=== PATIENT | female | born 1965 | race Caucasian/White ===

== ENCOUNTER 2016-11-09 07:22 | Emergency (ER) | payer OTHER ==
[~2016-11-09] VITALS: Ht 165.1 cm; Wt 54.4 kg
[~2016-11-09 07:22] MED LIST: ALBUTEROL0.09 MG/A2 INH; AMOXICILLIN500 MG PO; CLARITIN10 MG PO; DAYPRO600 M1 PO; EFFEXOR25 MG PO; FLEXERIL10 MG PO; HYDROCODONE BIT1 T11 PO; IBU800 MG PO; LEXAPRO5 MG PO; LOMOTIL 0.025 M1 TA1 PO; MOTRIN800 MG PO; NEURONTIN300 MG PO; PEN-VEE K500 MG PO; PENICILLIN VK500 MG PO; PHENTERMINE15 MG PO; PREDNICOT20 MG PO; PREDNISONE10 MG PO; REMERON15 MG PO; ROBAXIN750 MG PO; TESSALON PERLE100 M1 PO; TRAMADOL HCL50 MG PO; TRIMOX500 MG PO; ULTRAM50 MG PO; VICODIN 5/500 505 MG PO; ZITHROMAX Z PA250 MG PO; ZOFRAN ODT4 MG SL
[2016-11-09 07:46] LABS: BASO # 0.1 10*3/uL (0.0-0.1); BASO % 0.5 % (0.0-1.0); EOS % 0.3 % (1.0-4.0); HEMATOCRIT 36.1 % (37.0-47.0); LYMPH # 3.2 10*3/uL (1.3-4.4); LYMPH % 27.3 % (27.0-41.0); MEAN CORPUSCULAR HGB 30.9 pg (27.0-31.0); MEAN CORPUSCULAR HGB CONC 33.2 g/dl (33.0-37.0); MEAN PLATELET VOLUME 9.4 fl (9.6-12.3); MONO # 1.2 10*3/uL (0.1-1.0); MONO % 10.2 % (3.0-9.0); NEUT # 7.2 10*3/uL (2.3-7.9); NEUT % 61.4 % (47.0-73.0); PLATELET COUNT AUTOMATED 229 10*3/uL (130-400); RED BLOOD COUNT 3.88 10*6/uL (4.10-5.10); RED CELL DISTRI WIDTH 13.5 % (0-14.5); WHITE BLOOD COUNT 11.8 10*3/uL (4.8-10.8)
[2016-11-09 07:56] LABS: PROTHROMBIN TIME 10.3 SECONDS (9.0-12.4)
[2016-11-09 08:05] LABS: ALBUMIN 3.7 gm/dl (3.1-4.5); ALKALINE PHOSPHATASE 67 U/L (45-117); BILIRUBIN, TOTAL 0.3 mg/dl (0.2-1.0); BUN 10 mg/dl (7-24); C-REACTIVE PROTEIN 0.69 MG/DL (0-0.3); CARBON DIOXIDE 30 mmol/L (21-32); CHLORIDE 100 mmol/L (98-107); CKMB 1.2 ng/ml (0.5-3.6); CPK 79 U/L (26-192); EST GLOM FILT AFRICAN AMERICAN > 60 ml/min; GLUCOSE 135 mg/dL (65-99); POTASSIUM 3.7 mmol/L (3.5-5.1); SGOT/AST 23 IU/L (3-35); SGPT/ALT 39 U/L (12-78); SODIUM 140 mmol/L (136-145); TOTAL PROTEIN 7.5 gm/dL (6.4-8.2)
[2016-11-09 08:06] LABS: TROPONIN I < 0.015 ng/ml (<0.045)
[2016-11-09 09:35] LABS: BILIRUBIN NEGATIVE (NEGATIVE); BLOOD TRACE-INTACT (NEGATIVE); CLARITY SL CLOUDY (CLEAR); COLOR YELLOW (YELLOW); GLUCOSE NEGATIVE (NEGATIVE); KETONE NEGATIVE (NEGATIVE); LEUKO ESTERASE NEGATIVE (NEGATIVE); NITRITE NEGATIVE (NEGATIVE); PROTEIN NEGATIVE (NEGATIVE); SPECIFIC GRAVITY 1.015 (1.005-1.030)
[2016-11-09 09:42] LABS: LA>2 REFLEX 2 HR DRAW NOW
[2016-11-09 09:42] LABS: BACTERIA 1+
[2016-11-09 09:43] LABS: URINE REFLEX COMMENT YES (NO)
[2016-11-09 09:45] LABS: URINE AMPHETAMINES < 1000 (1000ng/ml); URINE BARBITURATES < 200 (200ng/ml); URINE COCAINE < 300 (300ng/ml)
== END 2016-11-09 12:11 | disposition home or self-care (01) ==
LOC: ED 07:22
PROVIDERS: Emergency Medicine
DX: T40.601A Poisoning by unspecified narcotics, accidental (unintentional), initial encounter (principal); Z91.018 Allergy to other foods; Z86.19 Personal history of other infectious and parasitic diseases; Y92.9 Unspecified place or not applicable

== ENCOUNTER 2022-08-06 16:24 | Inpatient (IN) | payer OTHER ==
[~2022-08-06] VITALS: Ht 157.5 cm; Wt 39.9 kg
[~2022-08-06 16:24] MED LIST changes: +FUROSEMIDE40 MG PO; +Ipratropium Brom3 ML NEB; +LASIX40 MG PO; +LEVOFLOXACIN500 MG PO
[2022-08-06 16:34] VITALS: BP 151/93
[2022-08-06 17:16] LABS: HEMATOCRIT 45.6 % (37.0-47.0); MEAN CELL VOLUME 82.9 fl (81.0-99.0); MEAN CORPUSCULAR HGB 25.8 pg (27.0-31.0); MEAN CORPUSCULAR HGB CONC 31.1 g/dl (33.0-37.0); PLATELET COUNT AUTOMATED 378 10*3/uL (130-400); RED CELL DISTRI WIDTH 19.9 % (0-14.5); WHITE BLOOD COUNT 16.2 10*3/uL (4.8-10.8)
[2022-08-06 17:18] LABS: MANUAL DIFF REFLEX YES
[2022-08-06 17:33] LABS: ALKALINE PHOSPHATASE 84 U/L (46-116); BUN 6 mg/dl (9-23); CHLORIDE 95 mmol/L (98-107); CREATININE 0.59 mg/dL (0.55-1.02); POTASSIUM 3.2 mmol/L (3.4-5.1); SGPT/ALT 11 U/L (10-49); SODIUM 136 mmol/L (136-145); TOTAL PROTEIN 7.9 gm/dL (6.0-8.0)
[2022-08-06 17:37] LABS: BILIRUBIN Negative (Negative); BLOOD Negative (Negative); CLARITY Cloudy (Clear); COLOR Dark Yellow (Yellow); GLUCOSE Negative (Negative); KETONE Trace (Negative); LEUKO ESTERASE Trace (Negative); NITRITE Negative (Negative); SPECIFIC GRAVITY >= 1.030 (1.001-1.030)
[2022-08-06 17:47] LABS: PLATELET SUFFICIENCY NORMAL (NORMAL); POLYCHROMASIA SLIGHT; TOTAL CELLS COUNTED 100 #CELLS
[2022-08-06 17:48] LABS: STOMATOCYTE FEW; TARGET CELLS FEW
[2022-08-06 18:38] LABS: BACTERIA 2+; EPITHELIAL CELLS TNTC; RBC 0-2 rbc/hpf (0-2)
[2022-08-06] MEDS ORDERED: FUROSEMIDE20 M1 PO (20:46)
[2022-08-06] MEDS ORDERED: POTASSIUM CHLO20 ME4 PO (20:47)
[2022-08-07 00:40] VITALS: BP 148/103
[2022-08-07 08:00] VITALS: BP 140/68
[2022-08-07 08:24] LABS: BASO % 0.2 % (0.0-1.0); HEMATOCRIT 43.3 % (37.0-47.0); LYMPH # 1.1 10*3/uL (1.3-4.4); LYMPH % 7.6 % (27.0-41.0); MEAN CELL VOLUME 83.6 fl (81.0-99.0); MEAN CORPUSCULAR HGB 25.5 pg (27.0-31.0); MEAN CORPUSCULAR HGB CONC 30.5 g/dl (33.0-37.0); MEAN PLATELET VOLUME 8.7 fl (9.6-12.3); MONO # 0.4 10*3/uL (0.1-1.0); MONO % 2.5 % (3.0-9.0); NEUT # 12.6 10*3/uL (2.3-7.9); NEUT % 88.9 % (47.0-73.0); PLATELET COUNT AUTOMATED 383 10*3/uL (130-400); RED BLOOD COUNT 5.18 10*6/uL (4.10-5.10); RED CELL DISTRI WIDTH 19.7 % (0-14.5); WHITE BLOOD COUNT 14.2 10*3/uL (4.8-10.8)
[2022-08-07 08:39] LABS: ALKALINE PHOSPHATASE 81 U/L (46-116); BUN 8 mg/dl (9-23); CHLORIDE 99 mmol/L (98-107); CREATININE 0.52 mg/dL (0.55-1.02); SGPT/ALT 10 U/L (10-49); SODIUM 139 mmol/L (136-145); TOTAL PROTEIN 7.2 gm/dL (6.0-8.0)
[2022-08-07 08:59] LABS: POTASSIUM 4.9 mmol/L (3.4-5.1)
[2022-08-07 12:00] VITALS: BP 127/64
[2022-08-07] MEDS ORDERED: LEVOFLOXACIN750 M2 PO (12:04)
[2022-08-07] MEDS ORDERED: PREDNISONE10 MG PO (12:04)
== END 2022-08-07 14:40 | disposition home or self-care (01) | DRG 871 ==
LOC: ED 16:24 → EDHOLD 21:05 → 4E 23:20
PROVIDERS: Internal Medicine; Physician Assistant; ADMIT Family Medicine; ATTEND Family Medicine
DX: A41.9 Sepsis, unspecified organism (principal); J18.9 Pneumonia, unspecified organism; J96.01 Acute respiratory failure with hypoxia; E44.0 Moderate protein-calorie malnutrition; J44.1 Chronic obstructive pulmonary disease with (acute) exacerbation; Z68.1 Body mass index [BMI] 19.9 or less, adult; Z20.822 Contact with and (suspected) exposure to COVID-19; I50.9 Heart failure, unspecified; I11.0 Hypertensive heart disease with heart failure; R65.20 Severe sepsis without septic shock; R73.9 Hyperglycemia, unspecified; Z91.02 Food additives allergy status; Z82.49 Family history of ischemic heart disease and other diseases of the circulatory system; Z80.1 Family history of malignant neoplasm of trachea, bronchus and lung; Z86.19 Personal history of other infectious and parasitic diseases; Z87.891 Personal history of nicotine dependence

== ENCOUNTER 2022-09-20 12:20 | Inpatient (IN) | payer OTHER ==
[~2022-09-20] VITALS: Ht 157.5 cm; Wt 45.2 kg
[2022-09-20] VITALS (8 sets, daily range): BP systolic 118–153; BP diastolic 65–85
[~2022-09-20 12:20] MED LIST changes: +FUROSEMIDE20 M1 PO; +LEVOFLOXACIN750 M2 PO; +POTASSIUM CHLO20 ME4 PO
[2022-09-20 12:49] LABS: BILIRUBIN Negative (Negative); BLOOD Negative (Negative); CLARITY Clear (Clear); COLOR Yellow (Yellow); GLUCOSE Negative (Negative); KETONE Negative (Negative); LEUKO ESTERASE Negative (Negative); NITRITE Negative (Negative); PH 7.5 (4.5-8.0); SPECIFIC GRAVITY <= 1.005 (1.001-1.030); UROBILINOGEN 0.2 E.U./dl (0.0-1.0)
[2022-09-20 12:59] LABS: EPITHELIAL CELLS 0-2; RBC 0-2 rbc/hpf (0-2)
[2022-09-20 13:16] LABS: BASO # 0.1 10*3/uL (0.0-0.1); BASO % 1.1 % (0.0-1.0); EOS # 0.1 10*3/uL (0.0-0.4); EOS % 1.3 % (1.0-4.0); HEMATOCRIT 49.4 % (37.0-47.0); LYMPH # 2.5 10*3/uL (1.3-4.4); LYMPH % 39.5 % (27.0-41.0); MEAN CELL VOLUME 90.5 fl (81.0-99.0); MEAN CORPUSCULAR HGB 28.2 pg (27.0-31.0); MEAN CORPUSCULAR HGB CONC 31.2 g/dl (33.0-37.0); MEAN PLATELET VOLUME 9.2 fl (9.6-12.3); MONO # 0.7 10*3/uL (0.1-1.0); MONO % 10.8 % (3.0-9.0); NEUT % 47.1 % (47.0-73.0); PLATELET COUNT AUTOMATED 244 10*3/uL (130-400); RED BLOOD COUNT 5.46 10*6/uL (4.10-5.10); RED CELL DISTRI WIDTH 20.1 % (0-14.5); WHITE BLOOD COUNT 6.3 10*3/uL (4.8-10.8)
[2022-09-20 13:32] LABS: ALKALINE PHOSPHATASE 67 U/L (46-116); BUN 7 mg/dl (9-23); CHLORIDE 99 mmol/L (98-107); LIPASE 25 U/L (12-53); POTASSIUM 3.5 mmol/L (3.4-5.1); SGPT/ALT 145 U/L (10-49); TOTAL PROTEIN 7.7 gm/dL (6.0-8.0)
[2022-09-20 13:37] LABS: ACT PARTIAL THROMBO TIME 28.8 SECONDS (20.0-32.1); INTERNATIONAL NORM RATIO 1.1 (2.0-3.5)
[2022-09-21] VITALS: BP 117/57
[2022-09-21 07:24] LABS: BASO % 0.1 % (0.0-1.0); HEMATOCRIT 46.5 % (37.0-47.0); LYMPH # 1.4 10*3/uL (1.3-4.4); LYMPH % 20.6 % (27.0-41.0); MEAN CELL VOLUME 90.6 fl (81.0-99.0); MEAN CORPUSCULAR HGB 28.7 pg (27.0-31.0); MEAN CORPUSCULAR HGB CONC 31.6 g/dl (33.0-37.0); MONO # 0.6 10*3/uL (0.1-1.0); MONO % 8.3 % (3.0-9.0); NEUT # 4.8 10*3/uL (2.3-7.9); NEUT % 70.7 % (47.0-73.0); PLATELET COUNT AUTOMATED 258 10*3/uL (130-400); RED BLOOD COUNT 5.13 10*6/uL (4.10-5.10); RED CELL DISTRI WIDTH 20.1 % (0-14.5); WHITE BLOOD COUNT 6.7 10*3/uL (4.8-10.8)
[2022-09-21 07:43] LABS: ALKALINE PHOSPHATASE 67 U/L (46-116); CHLORIDE 102 mmol/L (98-107); POTASSIUM 4.1 mmol/L (3.4-5.1); SGPT/ALT 115 U/L (10-49); TOTAL PROTEIN 6.7 gm/dL (6.0-8.0)
[2022-09-21 07:46] LABS: BUN 17 mg/dl (9-23)
[2022-09-21 08:00] VITALS: BP 94/44
[2022-09-21 12:00] VITALS: BP 128/74
[2022-09-21] MEDS ORDERED: Ipratropium Brom3 ML NEB (14:38)
[2022-09-21] MEDS ORDERED: FUROSEMIDE20 M1 PO (14:38)
[2022-09-21] MEDS ORDERED: POTASSIUM CHLO20 ME4 PO (14:38)
[2022-09-21] MEDS ORDERED: CYCLOBENZAPRINE10 MG PO (14:53)
== END 2022-09-21 15:48 | disposition home or self-care (01) | DRG 189 ==
LOC: ED 12:20 → 5E 17:08 → EDHOLD 17:08 → 5E 18:15
PROVIDERS: Emergency Medicine; Internal Medicine; ADMIT Internal Medicine; ATTEND Internal Medicine
DX: J96.01 Acute respiratory failure with hypoxia (principal); I50.32 Chronic diastolic (congestive) heart failure; B18.2 Chronic viral hepatitis C; I11.0 Hypertensive heart disease with heart failure; M25.511 Pain in right shoulder; M62.838 Other muscle spasm; R74.01 Elevation of levels of liver transaminase levels; J43.1 Panlobular emphysema; R91.1 Solitary pulmonary nodule; Z87.891 Personal history of nicotine dependence; Z91.018 Allergy to other foods; Z82.49 Family history of ischemic heart disease and other diseases of the circulatory system; Z80.1 Family history of malignant neoplasm of trachea, bronchus and lung; Z83.3 Family history of diabetes mellitus; Z79.899 Other long term (current) drug therapy

== ENCOUNTER → 2022-10-18 | Outpatient (CLI) | payer OTHER ==
[~2022-10-18] MED LIST changes: +CYCLOBENZAPRINE10 MG PO
== END | disposition home or self-care (01) ==
LOC: RESCLI 09:40
PROVIDERS: ATTEND Internal Medicine
DX: R20.0 Anesthesia of skin (principal); J44.9 Chronic obstructive pulmonary disease, unspecified; B15.9 Hepatitis A without hepatic coma; B18.2 Chronic viral hepatitis C; I50.9 Heart failure, unspecified; R91.1 Solitary pulmonary nodule; Z91.018 Allergy to other foods; Z86.16 Personal history of COVID-19; Z98.890 Other specified postprocedural states; Z87.891 Personal history of nicotine dependence; F10.90 Alcohol use, unspecified, uncomplicated; Z79.899 Other long term (current) drug therapy

== ENCOUNTER 2023-11-28 16:42 | Emergency (ER) | payer OTHER ==
[~2023-11-28] VITALS: Ht 157.4 cm; Wt 40.8 kg
[~2023-11-28 16:42] MED LIST changes: +ADVAIR 250/501 EA INH; +DOXYCYCLINE HY100 M3 PO; +VENT7GM INH; +ZESTRIL10 MG PO
[2023-11-28] MEDS ORDERED: AMOX-CLAV 875-1 EACH PO (17:06)
[2023-11-28] MEDS ORDERED: Tdap Vaccine 0.5 ML SYR (Adult Vaccine) IM ONE (17:10)
[2023-11-28] MEDS ORDERED: Bacitracin Zinc 14 GM TUBE T ONE (17:10)
[2023-11-28] MEDS ORDERED: Amoxicillin/Clavulanate Pota 875 MG TAB PO ONE (17:10)
== END 2023-11-28 18:44 | disposition home or self-care (01) ==
LOC: ED 16:42
DX: S05.71XA Avulsion of right eye, initial encounter (principal); J44.9 Chronic obstructive pulmonary disease, unspecified; R73.9 Hyperglycemia, unspecified; I10 Essential (primary) hypertension; Z91.018 Allergy to other foods; Z98.890 Other specified postprocedural states; F17.200 Nicotine dependence, unspecified, uncomplicated; W54.0XXA Bitten by dog, initial encounter; Y93.89 Activity, other specified; Y92.89 Other specified places as the place of occurrence of the external cause; Y99.8 Other external cause status

== ENCOUNTER 2024-03-25 21:03 | Emergency (ER) | payer OTHER ==
[~2024-03-25] VITALS: Ht 157.4 cm; Wt 42.6 kg
[~2024-03-25 21:03] MED LIST changes: +AMOX-CLAV 875-1 EACH PO
[2024-03-25 21:33] LABS: BASO # 0.1 10*3/uL (0.0-0.1); BASO % 0.8 % (0.0-1.0); EOS # 0.2 10*3/uL (0.0-0.4); EOS % 2.8 % (1.0-4.0); HEMATOCRIT 55.1 % (37.0-47.0); LYMPH # 2.1 10*3/uL (1.3-4.4); LYMPH % 29.8 % (27.0-41.0); MEAN CORPUSCULAR HGB 28.8 pg (27.0-31.0); MEAN CORPUSCULAR HGB CONC 30.7 g/dl (33.0-37.0); MONO % 13.4 % (3.0-9.0); NEUT # 3.8 10*3/uL (2.3-7.9); NEUT % 52.9 % (47.0-73.0); PLATELET COUNT AUTOMATED 197 10*3/uL (130-400); RED BLOOD COUNT 5.86 10*6/uL (4.10-5.10); RED CELL DISTRI WIDTH 16.6 % (0-14.5); WHITE BLOOD COUNT 7.2 10*3/uL (4.8-10.8)
[2024-03-25 21:56] LABS: ALKALINE PHOSPHATASE 73 U/L (46-116); BUN 8 mg/dl (9-23); CHLORIDE 101 mmol/L (98-107); POTASSIUM 3.7 mmol/L (3.4-5.1); SGPT/ALT 26 U/L (5-49); TOTAL PROTEIN 7.1 gm/dL (6.0-8.0)
[2024-03-25] MEDS ORDERED: BUMETANIDE 1 MG/4 ML VIAL IV ONE (22:30)
== END 2024-03-25 23:42 | disposition home or self-care (01) ==
LOC: ED 21:03
PROVIDERS: Internal Medicine
DX: R60.0 Localized edema (principal); E87.29 Other acidosis; D75.1 Secondary polycythemia; J44.9 Chronic obstructive pulmonary disease, unspecified; F31.9 Bipolar disorder, unspecified; F17.200 Nicotine dependence, unspecified, uncomplicated; F19.10 Other psychoactive substance abuse, uncomplicated; Z91.018 Allergy to other foods; Z98.890 Other specified postprocedural states

== ENCOUNTER 2024-07-11 15:35 | Emergency (ER) | payer OTHER ==
[~2024-07-11] VITALS: Ht 160 cm; Wt 38.6 kg
[2024-07-11] MEDS ORDERED: Dexamethasone Sodium Phospha 20 MG/5 ML VIAL IV ONE (16:10)
[2024-07-11] MEDS ORDERED: AZITHROMYCIN 250 MG TAB PO ONE (16:10)
[2024-07-11] MEDS ORDERED: MAGNESIUM SULFATE 50 ML IV ONE (16:10)
[2024-07-11] MEDS ORDERED: SODIUM CHLORIDE 0.9% 1,000 ML IV ONE (16:10)
[2024-07-11] MEDS ORDERED: Ceftriaxone Sodium 1 GM/10 ML SYR IV ONE (16:10)
[2024-07-11] MEDS ORDERED: Albuterol Sulf/Ipratropium 3 ML VIAL NEB SCH (16:15)
[2024-07-11 16:29] LABS: BASO # 0.1 10*3/uL (0.0-0.1); BASO % 0.6 % (0.0-1.0); EOS # 0.2 10*3/uL (0.0-0.4); EOS % 2.1 % (1.0-4.0); HEMATOCRIT 40.7 % (37.0-47.0); MEAN CELL VOLUME 94.4 fl (81.0-99.0); MEAN CORPUSCULAR HGB 30.4 pg (27.0-31.0); MEAN CORPUSCULAR HGB CONC 32.2 g/dl (33.0-37.0); MEAN PLATELET VOLUME 9.2 fl (9.6-12.3); MONO # 1.3 10*3/uL (0.1-1.0); MONO % 15.9 % (3.0-9.0); NEUT # 3.9 10*3/uL (2.3-7.9); NEUT % 49.2 % (47.0-73.0); PLATELET COUNT AUTOMATED 157 10*3/uL (130-400); RED BLOOD COUNT 4.31 10*6/uL (4.10-5.10)
[2024-07-11 16:41] LABS: ACT PARTIAL THROMBO TIME 29.9 SECONDS (20.0-32.1)
[2024-07-11] MEDS ORDERED: SPIRIVA RESPIMAT4 GM INH (16:43)
[2024-07-11 16:51] LABS: ALKALINE PHOSPHATASE 69 U/L (46-116); BUN 14 mg/dl (9-23); CHLORIDE 102 mmol/L (98-107); LIPASE 30 U/L (12-53); SGPT/ALT 22 U/L (5-49); TOTAL PROTEIN 7.5 gm/dL (6.0-8.0)
[2024-07-11] MEDS ORDERED: POTASSIUM CHLORIDE 20 MEQ TAB PO ONE (17:25)
[2024-07-11] MEDS ORDERED: ALBUTEROL2.5 MG/0.5 INH (17:35)
[2024-07-11] MEDS ORDERED: ZITHROMAX250 MG PO (17:35)
[2024-07-11] MEDS ORDERED: OMNICEF300 MG PO (17:35)
[2024-07-11] MEDS ORDERED: PREDNISONE50 MG PO (17:35)
[2024-07-11] MEDS ORDERED: VENT7GM INH (17:48)
== END 2024-07-11 18:16 | disposition home or self-care (01) ==
LOC: ED 15:35
PROVIDERS: Emergency Medicine
DX: J44.9 Chronic obstructive pulmonary disease, unspecified (principal); E87.6 Hypokalemia; F17.210 Nicotine dependence, cigarettes, uncomplicated; Z91.018 Allergy to other foods; Z79.899 Other long term (current) drug therapy

== ENCOUNTER 2024-07-18 23:17 | Emergency (ER) | payer OTHER ==
[~2024-07-18] VITALS: Ht 157.4 cm; Wt 38.6 kg
[~2024-07-18 23:17] MED LIST changes: +ALBUTEROL2.5 MG/0.5 INH; +OMNICEF300 MG PO; +PREDNISONE50 MG PO; +SPIRIVA RESPIMAT4 GM INH; +ZITHROMAX250 MG PO
[2024-07-18] MEDS ORDERED: LORazepam 1 MG TAB PO ONE (23:40)
== END 2024-07-19 01:30 | disposition home or self-care (01) ==
LOC: ED 23:17
DX: F41.9 Anxiety disorder, unspecified (principal); G25.81 Restless legs syndrome; J44.9 Chronic obstructive pulmonary disease, unspecified; F31.9 Bipolar disorder, unspecified; F17.200 Nicotine dependence, unspecified, uncomplicated; Z91.018 Allergy to other foods; Z98.890 Other specified postprocedural states

== ENCOUNTER 2024-08-16 21:19 | Emergency (ER) | payer OTHER ==
[~2024-08-16] VITALS: Ht 157.4 cm; Wt 40.8 kg
[2024-08-17] MEDS ORDERED: methylPREDNISolone sod succ 40 MG VIAL IM ONE (00:15)
[2024-08-17] MEDS ORDERED: METHOCARBAMOL 500 MG TAB PO ONE (00:45)
[2024-08-17] MEDS ORDERED: NAPROXEN250 MG PO (00:49)
[2024-08-17] MEDS ORDERED: METHOCARBAMOL500 M1 PO (00:49)
== END 2024-08-17 00:56 | disposition home or self-care (01) ==
LOC: ED 21:19
DX: S39.012A Strain of muscle, fascia and tendon of lower back, initial encounter (principal); S20.211A Contusion of right front wall of thorax, initial encounter; M54.42 Lumbago with sciatica, left side; M79.605 Pain in left leg; J44.9 Chronic obstructive pulmonary disease, unspecified; F31.9 Bipolar disorder, unspecified; F17.200 Nicotine dependence, unspecified, uncomplicated; Z91.018 Allergy to other foods; Z98.890 Other specified postprocedural states; W19.XXXA Unspecified fall, initial encounter; Y93.89 Activity, other specified; Y92.009 Unspecified place in unspecified non-institutional (private) residence as the place of occurrence of the external cause; Y99.8 Other external cause status